=== PATIENT | female | born 1980 | race Caucasian/White ===

== ENCOUNTER → 2018-04-28 | Outpatient (CLI) | payer BC ==
[~2018-04-28] MED LIST: ACHD5005 PO; DOCU-143 PO; NORG1TAB14 PO
--- NOTE | 2018-04-28 15:41 | Diagnostic Imaging Report ---
Indication: Routine screening. No prior mammograms are available for comparison. This is a baseline study. 2-D and 3-D bilateral screening mammography was performed with CAD. Scattered fibroglandular densities are identified bilaterally. No mass or malignant-appearing microcalcifications are seen. The axillae are unremarkable. Impression: BI-RADS category 1 No mammographic features suspicious for malignancy are identified. ACR BI-RADS Category 1: Negative. Result letter will be mailed to the patient. Note: At least 10% of breast cancer is not imaged by mammography. Dictated by: Dictated on workstation # [id number]
== END ==
LOC: RAD 12:59
PROVIDERS: ATTEND Family Medicine
DX: Z12.31 Encounter for screening mammogram for malignant neoplasm of breast (principal)
CPT/HCPCS: 77067

== ENCOUNTER 2020-10-24 13:36 | Emergency (ER) | payer BC ==
[~2020-10-24] VITALS: Ht 167 cm; Wt 117.0 kg
[2020-10-24 14:05] LABS: BILIRUBIN,URINE NEGATIVE (NEGATIVE); CLARITY,URINE CLEAR; COLOR,URINE YELLOW; GLUCOSE, URINE (UA) NEGATIVE (NEGATIVE); KETONES,URINE NEGATIVE (NEGATIVE); LEUKOCYTE ESTERASE ,URINE NEGATIVE (NEGATIVE); NITRITE,URINE NEGATIVE (NEGATIVE); PH,URINE 5.5 (5-9); PROTEIN,URINE NEGATIVE (NEGATIVE)
[2020-10-24] MEDS ORDERED: diphenhydrAMINE 50 MG/ML INJ (BENADRYL) IV STA (14:06)
[2020-10-24 14:14] LABS: BACTERIA,URINE TRACE /HPF; SQUAMOUS EPITHELIAL CELL,UR 0-2 /HPF; WBC,URINE 0-2 /HPF
[2020-10-24] MEDS ORDERED: NS IV 1000 ML 1,000 ML IV SCH (14:15)
--- NOTE | 2020-10-24 14:15 | ED Headache ---
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 Pt report a hx of migraines but does not take anything for them. Pt also reports tingling to left hand. Nursing Sepsis Screen: No Definite Risk History of Present Illness Date Seen by Provider: October 24, 2020 Time Seen by Provider: 13:50 Initial Comments 39-year-old reports a right frontal headache that began approximately 2 hours ago. She works as a cashier payments received at [employer] and her symptoms began while at work. She reports mild nausea no vomiting. She has had headaches in the past but this 1 seems to be worse and after taking 800 mg of ibuprofen it just told her symptoms. She also has some tingling in her left hand no tingling that is r adiating from her neck down her arm. Her last headache was approximately 1 year ago. She does not take medications for regular headaches. She has been drinking water today, had lunch at 11:00. No known stressors or acute causes. She has had no vision changes or aura prior to the headache beginning. Timing/Duration: 1-3 hours Severity/Quality: moderate (01/30) Location: frontal Prior Headaches/Recent Trauma: no recent headache/trauma Associated Symptoms: denies symptoms; No confusion, No fatigue, No facial pain, No fever/chills, No loss of consciousness, No nasal congestion, No nasal drainage, No numbness in legs/feet, No sinus infection, No vision changes Allergies and Home Medications Allergies Coded Allergies: latex (Verified Allergy, Intermediate, RASH, 02/27/16) Home Medications Docusate Sodium 100 Mg Capsule, 100 MG PO DAILY Prescribed by: SONAL SHAH on 02/29/16 0848 Hydrocodone Bit/Acetaminophen 1 Each Tablet, 1 TAB PO Q4H PRN Prescribed by: SONAL SHAH on 02/29/16 0848 Norgestimate-Ethinyl Estradiol 1 Each Tablet, 1 EACH PO DAILY, (Reported) Patient Home Medication List Home Medication List Reviewed: Yes Review of Systems Review of Systems Constitutional: no symptoms reported, see HPI Psychiatric/Neurological: See HPI, Headache All Other Systems Reviewed Negative Unless Noted: Yes Past Fxccipu-Faraqy-Ymmwbt Hx Past Med/Social Hx: Reviewed Nursing Past Med/Soc Hx Patient Social History Recent Infectious Disease Expo: No Past Medical History Reproductive Disorders: No Female Reproductive Disorders: Denies Sexually Transmitted Disease: No HIV/AIDS: No Gall Bladder Disease Loss of Vision: Bilateral Hearing Impairment: Denies Adverse Reaction/Blood Tranf: No (N/A) Physical Exam Vital Signs Vital Signs - First Documented 10/24/20 13:50 Temp 36.9 Pulse 106 Resp 18 B/P (MAP) 140/97 (111) Pulse Ox 100 O2 Delivery Room Air Capillary Refill : Less Than 3 Seconds Height, Weight, BMI Height: 5'6.00" Weight: 292lbs. 9.0oz. [id number]; 41.00 BMI Method: General Appearance: WD/WN, no apparent distress HEENT: PERRL/EOMI, normal ENT inspection, TMs normal, pharynx normal; No photophobia Neck: non-tender, full range of motion, supple, normal inspection Cardiovascular: normal peripheral pulses, regular rate, rhythm Respiratory: chest non-tender, lungs clear, normal breath sounds Gastrointestinal: normal bowel sounds, non tender, soft Extremities: normal range of motion, non-tender, normal inspection, normal capillary refill, other (Desulfurizer Operator strength and intrinsic power v/v bilat UEs. Normal sensation to light touch and pain in bilateral upper extremities. No change in headache or tingling to left hand with range of motion of the cervical spine.) Psychiatric: alert, oriented x 3 Crainal Nerves: normal hearing, normal speech, PERRL Coordination/Gait: normal finger to nose, normal gait Motor/Sensory: no motor deficit, no sensory deficit Skin: normal color, warm/dry Progress/Results/Core Measures Results/Orders Lab Results Laboratory Tests Test 10/24/20 13:57 Range/Units Urine Color YELLOW Urine Clarity CLEAR Urine pH 5.5 5-9 Urine Specific [place] >=1.030 1.016-1.022 Urine Protein NEGATIVE NEGATIVE Urine Glucose (UA) NEGATIVE NEGATIVE Urine Ketones NEGATIVE NEGATIVE Urine Nitrite NEGATIVE NEGATIVE Urine Bilirubin NEGATIVE NEGATIVE Urine Urobilinogen 0.2 < = 1.0 MG/DL Urine Leukocyte Esterase NEGATIVE NEGATIVE Urine RBC (Auto) NEGATIVE NEGATIVE Urine RBC NONE /HPF Urine WBC 0-2 /HPF Urine Squamous Epithelial Cells 0-2 /HPF Urine Crystals NONE /LPF Urine Bacteria TRACE /HPF Urine Casts NONE /LPF Urine Mucus SMALL H /LPF Urine Culture Indicated NO Urine Test NEGATIVE NEGATIVE My Orders Orders - SUKICORINNE Ua Culture If Indicated (10/24/20 13:51) Tramadol Tablet (Ultram Tablet) (10/24/20 14:15) Ed Iv/Invasive Line Start (10/24/20 14:06) Ns Iv 1000 Ml (Sodium Chloride 0.9%) (10/24/20 14:15) Diphenhydramine Injection (Benadryl Inje (10/24/20 14:06) Hcg,Qualitative Urine (10/24/20 14:21) Ketorolac Injection (Toradol Injection) (10/24/20 15:06) Acetaminophen Tablet/Caplet (Tylenol T (10/24/20 16:03) Acetaminophen Tablet/Caplet (Tylenol T (10/24/20 16:05) Medications Given in ED Current Medications Medications Dose Ordered Sig/Latonia Route Start Time Stop Time Status Last Admin Dose Admin Tramadol HCl 50 mg ONCE ONCE PO 10/24/20 14:15 10/24/20 14:16 DC 10/24/20 14:24 50 MG Vital Signs/I&O 10/24/20 10/24/20 13:50 16:15 Temp 36.9 Pulse 106 100 Resp 18 16 B/P (MAP) 140/97 (111) 140/80 Pulse Ox 100 98 O2 Delivery Room Air Room Air Blood Pressure Mean: 111 Progress Progress Note : Time: 13:50 Progress Note Patient seen and evaluated, will give normal saline 1 L per IV, Benadryl 50 mg IV and tramadol 50 mg p.o. 1435 patient reports minimal improvement in her symptoms, however she has been using her phone and not breast-feeding. Will give Toradol 30 mg IV. 1600 patient reports symptoms are improving she would like to try Tylenol, will give Tylenol 600 mg orally. The headache is fading, but she is just having no more tingling in her left hand. Discharge instructions and return precautions reviewed with her. Departure Impression Primary Impression: Headache Qualified Codes: G44.209 - Tension-type headache, unspecified, not intractable Disposition: 01 HOME, SELF-CARE Condition: Improved Departure-Patient Inst. Decision time for Depature: 16:00 Referrals: MARIA R RAYA MD (PCP/Family) Primary Care Physician Patient Instructions: Headache, Adult (DC) Add. Discharge Instructions: Use Excedrin at the first onset of headache. You may alternate between Tylenol 650 mg and ibuprofen 800 mg every 4 hours for headache. Rest in a dark room until your headache has improved. Activity as tolerated. Diet as tolerated. Follow-up with your primary care provider if symptoms are not improving or worsen. Continue to take your allergy medication as prescribed. Return to the emergency department for new, urgent healthcare needs. All discharge instructions reviewed with patient and/or family. Voiced understanding. CORINNE COHN October 24, 2020 14:15
[2020-10-24] MEDS ORDERED: KETOROLAC 30 MG/ML VIAL IVP STA (15:06)
[2020-10-24] MEDS ORDERED: ACETAMINOPHEN 325 MG TABLET PO STA (16:03)
[2020-10-24] MEDS ORDERED: ACETAMINOPHEN 325 MG TABLET ONE (16:05)
[2020-10-24 16:15] VITALS: BP 140/80
== END 2020-10-24 16:19 | disposition home or self-care (01) ==
LOC: EDUNIT# 13:36 → ER 13:38
DX: R51.9 Headache, unspecified (principal); Z91.040 Latex allergy status
CPT/HCPCS: 81000; 84703

== ENCOUNTER → 2020-10-27 | Outpatient (CLI) | payer BC ==
[2020-10-27 06:04] LABS: BASOPHILS # (AUTO) 0.1 10^3/uL (0.0-0.1); BASOPHILS % (AUTO) 1 % (0-10); EOSINOPHILS # (AUTO) 0.4 10^3/uL (0.0-0.3); EOSINOPHILS % (AUTO) 5 % (0-10); HEMATOCRIT 40 % (35-52); HEMOGLOBIN 13.4 g/dL (11.5-16.0); LYMPHOCYTES # (AUTO) 2.8 10^3/uL (1.0-4.0); LYMPHOCYTES % (AUTO) 32 % (12-44); MEAN CORPUSCULAR HEMOGLOBIN 30 pg (25-34); MEAN CORPUSCULAR HGB CONC 33 g/dL (32-36); MEAN CORPUSCULAR VOLUME 90 fL (80-99); MEAN PLATELET VOLUME 10.2 fL (9.0-12.2); MONOCYTES # (AUTO) 0.8 10^3/uL (0.0-1.0); MONOCYTES % (AUTO) 9 % (0-12); NEUTROPHILS # (AUTO) 4.5 10^3/uL (1.8-7.8); NEUTROPHILS % (AUTO) 53 % (42-75); PLATELET COUNT 376 10^3/uL (130-400); WHITE BLOOD COUNT 8.5 10^3/uL (4.3-11.0)
[2020-10-27 06:19] LABS: CHLORIDE 104 MMOL/L (98-107); POTASSIUM 4.2 MMOL/L (3.6-5.0); SODIUM 138 MMOL/L (135-145)
[2020-10-27 06:21] LABS: CALCIUM 9.2 MG/DL (8.5-10.1); TRIGLYCERIDES 63 MG/DL (<150); VLDL CHOLESTEROL 13 MG/DL (5-40)
[2020-10-27 06:22] LABS: GLUCOSE 93 MG/DL (70-105); TOTAL PROTEIN 7.6 GM/DL (6.4-8.2)
[2020-10-27 06:23] LABS: CARBON DIOXIDE 25 MMOL/L (21-32)
[2020-10-27 06:24] LABS: BILIRUBIN,TOTAL 0.3 MG/DL (0.1-1.0)
[2020-10-27 06:26] LABS: ALKALINE PHOSPHATASE 68 U/L (40-136); CREATININE SERUM 0.74 MG/DL (0.60-1.30); GFR ESTIMATED > 60
[2020-10-27 06:27] LABS: BUN/CREATININE RATIO 22; CHOLESTEROL 163 MG/DL (< 200)
[2020-10-27 06:28] LABS: HDL CHOLESTEROL 55 MG/DL (40-60)
[2020-10-27 06:29] LABS: ALANINE AMINOTRANSFERASE 23 U/L (0-55)
== END ==
LOC: LAB 05:37
PROVIDERS: ATTEND Family Medicine
DX: Z00.00 Encounter for general adult medical examination without abnormal findings (principal); Z13.220 Encounter for screening for lipoid disorders; R53.83 Other fatigue
CPT/HCPCS: 36415; 80053; 80061; 84443; 85025

== ENCOUNTER 2021-02-08 10:10 | Emergency (ER) | payer BC ==
[~2021-02-08] VITALS: Ht 167 cm; Wt 275.0 kg
[2021-02-08] MEDS ORDERED: PROM25TA14 PO (10:57)
--- NOTE | 2021-02-08 10:57 | ED Headache ---
General Chief Complaint: Head/Cervical Problems Stated Complaint: MIGRAINE Nursing Triage Note: AMB TO ROOM WITH C/O HEADACHE THIS AM UNABLE TO TAKE PO MEDS BECAUSE OF NAUSEA. PATIENT EXPOSED TO COVID ON SAT HAD A NEG TEST ON FRI HAS HAD THE VACCAINE. Source: patient Exam Limitations: no limitations History of Present Illness Date Seen by Provider: Feb 08, 2021 Time Seen by Provider: 10:42 Initial Comments Patient to the ER by private conveyance with chief complaint of migraine headache centered over the right eye, nonthrobbing without aura. She is had some nausea and vomiting x1. Started at 4:00 this morning. She had to leave work [facility] [employer] because the pain was too much. She was not able to take anything for her headache today because of the nausea. She has migraines like this about once a month. She is not having any weakness blindness numbness tingling or difficulty walking or confusion. Allergies and Home Medications Allergies Coded Allergies: latex (Verified Allergy, Intermediate, RASH, 02/27/16) Home Medications Docusate Sodium 100 Mg Capsule, 100 MG PO DAILY Prescribed by: SONAL SHAH on 02/29/16 0848 Hydrocodone Bit/Acetaminophen 1 Each Tablet, 1 TAB PO Q4H PRN Prescribed by: SONAL SHAH on 02/29/16 0848 Norgestimate-Ethinyl Estradiol 1 Each Tablet, 1 EACH PO DAILY, (Reported) Patient Home Medication List Home Medication List Reviewed: Yes Review of Systems Review of Systems Constitutional: No chills, No diaphoresis Eyes: Denies Blindness, Denies Drainage Ears, Nose, Mouth, Throat: denies ear pain Respiratory: No cough, No phlegm Cardiovascular: No chest pain, No palpitations Gastrointestinal: No abdominal pain, No constipation, No diarrhea All Other Systems Reviewed Negative Unless Noted: Yes Past Enasljo-Wrjuex-Owyvta Hx Patient Social History Tobacco Use?: No Substance use?: No Alcohol Use?: No Pt feels they are or have been: No Immunizations Up To Date Influenza Vaccine Up-to-Date: No; Not Current First/Initial COVID19 Vaccinat: JUL Second COVID19 Vaccination Davon: AUGUST COVID19 Vaccine Rehab Trainer: LEA Seasonal Allergies Seasonal Allergies: Yes Past Medical History Surgeries: Yes (WISDOM TEETH) Gallbladder Respiratory: Yes (ASTHMA REACTION TO PERFUME - DOESN'T HAVE INHALER) Asthma Cardiac: No Neurological: No Last Menstrual Period: Dec 25, 2020 Reproductive Disorders: No Female Reproductive Disorders: Denies Sexually Transmitted Disease: No HIV/AIDS: No Genitourinary: No Gastrointestinal: Yes Gall Bladder Disease Musculoskeletal: No Endocrine: No HEENT: No (glasses) Loss of Vision: Bilateral Hearing Impairment: Denies Cancer: No Psychosocial: Yes Anxiety Integumentary: No Blood Disorders: No Adverse Reaction/Blood Tranf: No (N/A) Physical Exam Vital Signs Vital Signs - First Documented 02/08/21 10:23 Temp 36.2 Pulse 102 Resp 18 B/P (MAP) 181/115 (137) Pulse Ox 98 O2 Delivery Room Air Capillary Refill : Less Than 3 Seconds Height, Weight, BMI Height: 5'6.00" Weight: 292lbs. 9.0oz. 132.404319mn; 98.00 BMI Method: General Appearance: WD/WN, mild distress HEENT: PERRL/EOMI, normal ENT inspection, TMs normal, pharynx normal Neck: non-tender, full range of motion, supple, normal inspection Cardiovascular: normal peripheral pulses, regular rate, rhythm Respiratory: no respiratory distress, no accessory muscle use Psychiatric: alert, oriented x 3 Crainal Nerves: normal hearing, normal speech, PERRL Progress/Results/Core Measures Results/Orders My Orders Orders - TERI COTA Ketorolac Injection (Toradol Injection) (02/08/21 11:00) Diphenhydramine Injection (Benadryl Inje (02/08/21 11:00) Promethazine Injection (Phenergan Injec (02/08/21 11:00) Vital Signs/I&O 02/08/21 10:23 Temp 36.2 Pulse 102 Resp 18 B/P (MAP) 181/115 (137) Pulse Ox 98 O2 Delivery Room Air Blood Pressure Mean: 137 Progress Progress Note : Time: 10:55 Progress Note Toradol, Phenergan, Benadryl IM and a note for work. Departure Impression Primary Impression: Migraine headache Qualified Codes: G43.009 - Migraine without aura, not intractable, without status migrainosus Disposition: 01 HOME, SELF-CARE Condition: Stable Departure-Patient Inst. Decision time for Depature: 10:56 Referrals: MARIA R RAYA MD (PCP/Family) Primary Care Physician Patient Instructions: Migraines (DC) Add. Discharge Instructions: Get some sleep. Drink plenty of water. Try to return to work tomorrow. Tylenol 1000 mg every 8 hours as necessary for pain. Ibuprofen 800 mg every 8 hours as necessary for pain. Phenergan 1 tablet every 6 hours as necessary for nausea accompanied by 25 mg of Benadryl to help with sleep. All discharge instructions reviewed with patient and/or family. Voiced understanding. Scripts Promethazine HCl (Promethazine Tablet) 25 Mg Tablet 25 MG PO Q6H PRN for NAUSEA/VOMITING, #10 TAB 0 Refills Prov: TERI COTA 02/08/21 Work/School Note: Work Release Form Date Seen in the Emergency Department: Feb 08, 2021 Return to Work: Feb 09, 2021 Restrictions: No Restrictions TERI COTA Feb 08, 2021 10:57
[2021-02-08] MEDS ORDERED: KETOROLAC 60 MG/2 ML VIAL IM ONE (11:00)
[2021-02-08] MEDS ORDERED: diphenhydrAMINE 50 MG/ML INJ (BENADRYL) IM ONE (11:00)
[2021-02-08] MEDS ORDERED: PROMETHAZINE INJ 25 MG/ML (PHENERGAN) AMP IM ONE (11:00)
[2021-02-08 11:22] VITALS: BP 153/86
== END 2021-02-08 11:22 | disposition home or self-care (01) ==
LOC: EDUNIT# 10:10 → ER 10:11
DX: G43.909 Migraine, unspecified, not intractable, without status migrainosus (principal); J45.909 Unspecified asthma, uncomplicated
CPT/HCPCS: 99284

== ENCOUNTER → 2021-06-04 | Outpatient (CLI) | payer BC ==
[~2021-06-04] MED LIST changes: +PROM25TA14 PO
[2021-06-04 12:13] LABS: BASOPHILS # (AUTO) 0.1 10^3/uL (0.0-0.1); BASOPHILS % (AUTO) 0 % (0-10); EOSINOPHILS # (AUTO) 0.3 10^3/uL (0.0-0.3); EOSINOPHILS % (AUTO) 3 % (0-10); HEMATOCRIT 41 % (35-52); HEMOGLOBIN 13.7 g/dL (11.5-16.0); LYMPHOCYTES # (AUTO) 2.7 10^3/uL (1.0-4.0); LYMPHOCYTES % (AUTO) 23 % (12-44); MEAN CORPUSCULAR HEMOGLOBIN 30 pg (25-34); MEAN CORPUSCULAR HGB CONC 33 g/dL (32-36); MEAN CORPUSCULAR VOLUME 90 fL (80-99); MEAN PLATELET VOLUME 9.9 fL (9.0-12.2); MONOCYTES # (AUTO) 0.9 10^3/uL (0.0-1.0); MONOCYTES % (AUTO) 7 % (0-12); NEUTROPHILS # (AUTO) 7.8 10^3/uL (1.8-7.8); NEUTROPHILS % (AUTO) 67 % (42-75); PLATELET COUNT 449 10^3/uL (130-400); WHITE BLOOD COUNT 11.8 10^3/uL (4.3-11.0)
[2021-06-04 12:23] LABS: ALBUMIN 3.6 GM/DL (3.2-4.5); POTASSIUM 3.9 MMOL/L (3.6-5.0)
[2021-06-04 12:24] LABS: CALCIUM 9.1 MG/DL (8.5-10.1)
[2021-06-04 12:25] LABS: TOTAL PROTEIN 7.4 GM/DL (6.4-8.2)
[2021-06-04 12:27] LABS: BILIRUBIN,TOTAL 0.3 MG/DL (0.1-1.0)
[2021-06-04 12:29] LABS: CREATININE SERUM 0.72 MG/DL (0.60-1.30)
[2021-06-04 12:53] LABS: FREE T4 (FREE THYROXINE) 0.96 NG/DL (0.70-1.48)
== END ==
LOC: LAB 11:44
PROVIDERS: ATTEND Family Medicine
DX: R53.83 Other fatigue (principal)
CPT/HCPCS: 36415; 80053; 84439; 84443; 85025

== ENCOUNTER 2022-12-13 13:13 | Emergency (ER) | payer BC ==
[~2022-12-13] VITALS: Ht 167 cm; Wt 145.0 kg
[2022-12-13] MEDS ORDERED: NS IV 1000 ML 1,000 ML IV STA (13:58)
[2022-12-13] MEDS ORDERED: ONDANSETRON 4 MG/2 ML (SDV) Z0FRAN IVP ONE (14:00)
[2022-12-13] MEDS ORDERED: PROCHLORPERAZINE 10 MG/2ML INJ (COMPAZINE) IV ONE (14:00)
[2022-12-13] MEDS ORDERED: KETOROLAC 30 MG/ML VIAL IVP ONE (14:00)
--- NOTE | 2022-12-13 14:02 | ED Headache ---
General Chief Complaint: Head/Cervical Problems Stated Complaint: HEADACHE | DEHYDRATION | NAUSEA Nursing Triage Note: PT AMB TO TRIAGE. PT STATES DAWSON STARTED THIS AM AND CO OF VISION CHANGES IN L EYE FOR A SHORT WHILE AND IS NOW BACK TO NORMAL. RATES DAWSON PAIN 6/10. PT STATES HAS HAD N/V W DAWSON. PT ALSO STATES HAS SOME NECK STIFFNESS Source: patient Exam Limitations: no limitations History of Present Illness Date Seen by Provider: Dec 13, 2022 Time Seen by Provider: 13:59 Initial Comments Patient is a 42-year-old female female who presents to ED with headache. Rates headache 6 out of 10. Symptoms started around this morning around 8:00 when she woke up. located to the right side of her frontal head. Denies radiation. She did have some blurry vision in the left eye this morning but that has resolved. She denies of any focal numbness and tingling or loss of motor function. She started feeling nauseous and vomited 4 times. She states she feels dehydrated. Some soreness to her neck that feels stiff but no specific pain. She has no chest pain, shortness of breath, cough, abdominal pain, diarrhea. Last menstrual cycle 3 weeks ago. History of headaches but states she typically gets 1 every other month. Feels very similar without this much vomiting. Associated photophobia. She did have a sinus infection last week was treated with steroids but states his symptoms haveimproved. Denies history of stroke, coronary artery disease Allergies and Home Medications Allergies Coded Allergies: latex (Verified Allergy, Intermediate, RASH, 02/27/16) Patient Home Medication List Home Medication List Reviewed: Yes Docusate Sodium (Colace) 100 Mg Capsule, 100 MG PO DAILY Prescribed by: SONAL SHAH on 02/29/16 0848 Hydrocodone Bit/Acetaminophen (Lortab 5 Mg Tablet) 1 Each Tablet, 1 TAB PO Q4H PRN Prescribed by: SONAL SHAH on 02/29/16 0848 Norgestimate-Ethinyl Estradiol (Sprintec 28 Day Tablet) 1 Each Tablet, 1 EACH PO DAILY, (Reported) Entered as Reported by: KATHY NEAL on 02/27/16 1235 Promethazine HCl (Promethazine Tablet) 25 Mg Tablet, 25 MG PO Q6H PRN for NAUSEA/VOMITING Prescribed by: TERI COTA on 02/08/21 1057 Review of Systems Review of Systems Constitutional: No chills, No diaphoresis, No malaise, No weakness Eyes: Blurred Vision; Denies Decreased Acuity Ears, Nose, Mouth, Throat: denies ear pain Respiratory: No cough, No dyspnea on exertion Cardiovascular: No chest pain Gastrointestinal: No abdominal pain, No constipation; nausea, vomiting Genitourinary: No decreased output, No discharge Musculoskeletal: No back pain, No joint pain Skin: No change in color, No change in hair/nails All Other Systems Reviewed Negative Unless Noted: Yes Past Vhnscbh-Ivjbls-Sqojug Hx Patient Social History Tobacco Use?: No Substance use?: No Alcohol Use?: No Pt feels they are or have been: No Immunizations Up To Date First/Initial COVID19 Vaccinat: Jul COVID19 Vaccination Davon: August COVID19 Vaccination Date: JUL Seasonal Allergies Seasonal Allergies: Yes Past Medical History Surgery/Hospitalization HX: WISDOM TEETH AND GALLBLADDER Surgeries: Yes (WISDOM TEETH) Gallbladder Respiratory: Yes (ASTHMA REACTION TO PERFUME - DOESN'T HAVE INHALER) Asthma Cardiac: No Neurological: No Last Menstrual Period: November 08, 2022 Reproductive Disorders: No Female Reproductive Disorders: Denies Sexually Transmitted Disease: No HIV/AIDS: No Genitourinary: No Gastrointestinal: Yes Gall Bladder Disease Musculoskeletal: No Endocrine: No HEENT: No (glasses) Loss of Vision: Bilateral Hearing Impairment: Denies Cancer: No Psychosocial: Yes Anxiety Integumentary: No Blood Disorders: No Adverse Reaction/Blood Tranf: No (N/A) Physical Exam Vital Signs Vital Signs - First Documented 12/13/22 13:35 Temp 36.7 Pulse 100 Resp 16 B/P (MAP) 143/106 (118) Pulse Ox 98 Capillary Refill : Less Than 3 Seconds Height, Weight, BMI Height: 5'6.00" Weight: 292lbs. 9.0oz. 132.420829vf; 51.00 BMI Method: General Appearance: WD/WN, no apparent distress HEENT: PERRL/EOMI, normal ENT inspection, TMs normal, pharynx normal Neck: non-tender, full range of motion, supple Cardiovascular: regular rate, rhythm, no edema, no gallop, no JVD Respiratory: chest non-tender, lungs clear, normal breath sounds, no respiratory distress, no accessory muscle use Gastrointestinal: normal bowel sounds, non tender, soft, no organomegaly Extremities: normal range of motion, non-tender, normal inspection, no pedal edema Crainal Nerves: normal hearing, normal speech, PERRL Coordination/Gait: normal finger to nose, normal gait Motor/Sensory: no motor deficit, no sensory deficit, no pronator drift Skin: normal color, warm/dry Progress/Results/Core Measures Results/Orders Lab Results Laboratory Tests Test 12/13/22 13:57 12/13/22 14:00 Range/Units White Blood Count 15.5 H 4.3-11.0 10^3/uL Red Blood Count 4.35 3.80-5.11 10^6/uL Hemoglobin 12.8 11.5-16.0 g/dL Hematocrit 38 35-52 % Mean Corpuscular Volume 88 80-99 fL Mean Corpuscular Hemoglobin 29 25-34 pg Mean Corpuscular Hemoglobin Concent 33 32-36 g/dL Red Cell Distribution Width 13.5 10.0-14.5 % Platelet Count 419 H 130-400 10^3/uL Mean Platelet Volume 9.9 9.0-12.2 fL Immature Granulocyte % (Auto) 1 % Neutrophils (%) (Auto) 73 42-75 % Lymphocytes (%) (Auto) 16 12-44 % Monocytes (%) (Auto) 7 0-12 % Eosinophils (%) (Auto) 3 0-10 % Basophils (%) (Auto) 1 0-10 % Neutrophils # (Auto) 11.3 H 1.8-7.8 10^3/uL Lymphocytes # (Auto) 2.5 1.0-4.0 10^3/uL Monocytes # (Auto) 1.2 H 0.0-1.0 10^3/uL Eosinophils # (Auto) 0.4 H 0.0-0.3 10^3/uL Basophils # (Auto) 0.1 0.0-0.1 10^3/uL Immature Granulocyte # (Auto) 0.1 0.0-0.1 10^3/uL Neutrophils % (Manual) 74 % Lymphocytes % (Manual) 15 % Monocytes % (Manual) 6 % Eosinophils % (Manual) 5 % Basophils % (Manual) 0 % Band Neutrophils 0 % Blood Morphology Comment NORMAL Sodium Level 139 135-145 MMOL/L Potassium Level 4.0 3.6-5.0 MMOL/L Chloride Level 105 98-107 MMOL/L Carbon Dioxide Level 23 21-32 MMOL/L Anion Gap 11 5-14 MMOL/L Blood Urea Nitrogen 13 7-18 MG/DL Creatinine 0.73 0.60-1.30 MG/DL Estimat Glomerular Filtration Rate 107 BUN/Creatinine Ratio 18 Glucose Level 96 70-105 MG/DL Calcium Level 9.3 8.5-10.1 MG/DL Corrected Calcium 9.5 8.5-10.1 MG/DL Total Bilirubin 0.2 0.1-1.0 MG/DL Aspartate Amino Transf (AST/SGOT) 15 5-34 U/L Alanine Aminotransferase (ALT/SGPT) 19 0-55 U/L Alkaline Phosphatase 92 40-136 U/L Total Protein 7.9 6.4-8.2 GM/DL Albumin 3.8 3.2-4.5 GM/DL Lipase 16 8-78 U/L Urine Color YELLOW Urine Clarity CLEAR Urine pH 5.5 5-9 Urine Specific [place] >=1.030 1.016-1.022 Urine Protein NEGATIVE NEGATIVE Urine Glucose (UA) NEGATIVE NEGATIVE Urine Ketones 1+ H NEGATIVE Urine Nitrite NEGATIVE NEGATIVE Urine Bilirubin NEGATIVE NEGATIVE Urine Urobilinogen 0.2 < = 1.0 MG/DL Urine Leukocyte Esterase NEGATIVE NEGATIVE Urine RBC (Auto) NEGATIVE NEGATIVE Urine RBC NONE /HPF Urine WBC 0-2 /HPF Urine Squamous Epithelial Cells 2-5 /HPF Urine Crystals NONE /LPF Urine Bacteria FEW H /HPF Urine Casts NONE /LPF Urine Mucus SMALL H /LPF Urine Culture Indicated NO Urine Test NEGATIVE NEGATIVE My Orders Orders - BENNETT PEREA Cbc With Automated Diff (12/13/22 13:58) Comprehensive Metabolic Panel (12/13/22 13:58) Lipase (12/13/22 13:58) Ua Culture If Indicated (12/13/22 13:58) Hcg,Qualitative Urine (12/13/22 13:58) Ns Iv 1000 Ml (Sodium Chloride 0.9%) (12/13/22 13:58) Ondansetron Injection (Zofran Injectio (12/13/22 14:00) Prochlorperazine Injection (Compazine In (12/13/22 14:00) Ketorolac Injection (Toradol Injection) (12/13/22 14:00) Manual Differential (12/13/22 13:57) Medications Given in ED Current Medications Medications Dose Ordered Sig/Latonia Route Start Time Stop Time Status Last Admin Dose Admin Ketorolac Tromethamine 30 mg ONCE ONCE IVP 12/13/22 14:00 12/13/22 14:01 DC 12/13/22 14:04 30 MG Ondansetron HCl 4 mg ONCE ONCE IVP 12/13/22 14:00 12/13/22 14:01 DC 12/13/22 14:04 4 MG Prochlorperazine Edisylate 10 mg ONCE ONCE IV 12/13/22 14:00 12/13/22 14:01 DC 12/13/22 14:04 10 MG Vital Signs/I&O 12/13/22 12/13/22 13:35 15:08 Temp 36.7 36.7 Pulse 100 100 Resp 16 16 B/P (MAP) 143/106 (118) 143/106 Pulse Ox 98 98 Blood Pressure Mean: 118 Departure Communication (PCP) Reviewed previous ER visits, H&P, lab testing. Differential diagnosis migraine, tension headache, viral syndrome dehydration. , Patient is a 42-year-old female who presents ED with headache, nausea and vomiting photophobia. Reviewed previous ER visits, H&P, lab testing. History of headaches in the past. She states she did have some blurry vision in the left eye but that has resolved. No current focal neural deficits. No stroke or cardiac risk factors. Vital signs stable. Patient was requesting a dark room. CBC, CMP, migraine cocktail was ordered. She has no neurological red flag findings. Similar type headaches in the past but states she did typically does not vomit as much. CBC showed elevated white blood count of 15. Platelets 419. Nonspecific. She is afebrile. No rash. Chemistry unremarkable. Urinalysis negative for infection. She did have ear and sinus infection last week was placed on antibiotics and steroids. Those are finished. She has no URI symptoms. She states her neck feels sore but she has no meningeal signs. No concerning neurological deficits. No chest pain, cough or shortness of breath. Patient does not appear toxic or septic. After migraine cocktail and a liter of fluid, patient with near resolution of symptoms. She remained asymptomatic. She is requesting be discharged. Recommend going home and resting. Tylenol or ibuprofen if head pain continues. If any worsening symptoms such as unilateral muscle weakness or sensory changes to return back to ED. Follow-up your PCP in 2 days. Impression Primary Impression: Headache Disposition: 01 HOME, SELF-CARE Condition: Stable Departure-Patient Inst. Decision time for Depature: 14:59 Referrals: [facility] (PCP/Family) Primary Care Physician Patient Instructions: Headache, Adult (DC) Add. Discharge Instructions: Recommend rest at home. Continue with Tylenol or ibuprofen if pain progress. If any worsening symptoms such as unilateral muscle weakness or sensory changes, visual loss return back to ED. Follow-up your PCP for further evaluation. All discharge instructions reviewed with patient and/or family. Voiced understanding. BENNETT PEREA Dec 13, 2022 14:02
[2022-12-13 14:04] LABS: BASOPHILS # (AUTO) 0.1 10^3/uL (0.0-0.1); BASOPHILS % (AUTO) 1 % (0-10); EOSINOPHILS # (AUTO) 0.4 10^3/uL (0.0-0.3); EOSINOPHILS % (AUTO) 3 % (0-10); HEMATOCRIT 38 % (35-52); HEMOGLOBIN 12.8 g/dL (11.5-16.0); LYMPHOCYTES # (AUTO) 2.5 10^3/uL (1.0-4.0); LYMPHOCYTES % (AUTO) 16 % (12-44); MEAN CORPUSCULAR HEMOGLOBIN 29 pg (25-34); MEAN CORPUSCULAR HGB CONC 33 g/dL (32-36); MEAN CORPUSCULAR VOLUME 88 fL (80-99); MEAN PLATELET VOLUME 9.9 fL (9.0-12.2); MONOCYTES # (AUTO) 1.2 10^3/uL (0.0-1.0); MONOCYTES % (AUTO) 7 % (0-12); NEUTROPHILS # (AUTO) 11.3 10^3/uL (1.8-7.8); NEUTROPHILS % (AUTO) 73 % (42-75); PLATELET COUNT 419 10^3/uL (130-400); WHITE BLOOD COUNT 15.5 10^3/uL (4.3-11.0)
[2022-12-13 14:09] LABS: ALBUMIN 3.8 GM/DL (3.2-4.5)
[2022-12-13 14:10] LABS: CALCIUM 9.3 MG/DL (8.5-10.1)
[2022-12-13 14:11] LABS: TOTAL PROTEIN 7.9 GM/DL (6.4-8.2)
[2022-12-13 14:13] LABS: BILIRUBIN,TOTAL 0.2 MG/DL (0.1-1.0)
[2022-12-13 14:15] LABS: CREATININE SERUM 0.73 MG/DL (0.60-1.30)
[2022-12-13 14:17] LABS: BILIRUBIN,URINE NEGATIVE (NEGATIVE); CLARITY,URINE CLEAR; COLOR,URINE YELLOW; GLUCOSE, URINE (UA) NEGATIVE (NEGATIVE); KETONES,URINE 1+ (NEGATIVE); LEUKOCYTE ESTERASE ,URINE NEGATIVE (NEGATIVE); NITRITE,URINE NEGATIVE (NEGATIVE); PH,URINE 5.5 (5-9); PROTEIN,URINE NEGATIVE (NEGATIVE)
[2022-12-13 14:29] LABS: BACTERIA,URINE FEW /HPF; WBC,URINE 0-2 /HPF
[2022-12-13 14:52] LABS: BAND NEUTROPHILS 0 %; BASOPHILS % (MANUAL) 0 %; EOSINOPHILS % (MANUAL) 5 %; LYMPHOCYTES % (MANUAL) 15 %; MONOCYTES % (MANUAL) 6 %; NEUTROPHILS % (MANUAL) 74 %; RBC MORPH NORMAL
[2022-12-13 15:08] VITALS: BP 143/106
== END 2022-12-13 15:09 | disposition home or self-care (01) ==
LOC: EDUNIT# 13:13 → ER 13:16
DX: R51.9 Headache, unspecified (principal); R11.2 Nausea with vomiting, unspecified; H53.142 Visual discomfort, left eye; Z91.040 Latex allergy status
CPT/HCPCS: 36415; 80053; 81000; 83690; 84703; 85007; 85027